=== PATIENT | female | born 1965 | race African-American/Black ===

== ENCOUNTER 2018-06-02 13:25 | Inpatient (IN) | payer OTHER ==
[2018-06-02 14:45] VITALS: BMI 25.9
[2018-06-02] MEDS ORDERED: ALBUTEROL SO4 2.5/IPRATROPIUM 0.5 INH SOL 3 ML VIAL.NEB. NEB PRN (17:38)
--- NOTE | 2018-06-02 17:44 | HP ---
CIWA Score Nausea/Vomitin-No Nausea/No Vomiting Muscle Tremors: 2 Anxiety: 3 Agitation: 3 Paroxysmal Sweats: 3 Orientation: 0-Oriented Tacttile Disturbances: 2-Mild Itch/Numbness/Burn (b/t hands and legs) Auditory Disturbances: 1-Very Mild Visual Disturbances: 1-Very Mild Sensitivity Headache: 2-Mild CIWA-Ar Total Score: 17 - Admission Criteria OASAS Guidelines: Admission for Medically Managed Detox: Requires at least one of the followin. CIWA greater than 12 2. Seizures within the past 24 hours 3. Delirium tremens within the past 24 hours 4. Hallucinations within the past 24 hours 5. Acute intervention needed for co occurring medical disorder 6. Acute intervention needed for co occurring psychiatric disorder 7. Severe withdrawal that cannot be handled at a lower level of care (continued vomiting, continued diarrhea, abnormal vital signs) requiring intravenous medication and/or fluids 8. Patient presents the following: CIWA greater than 12 Admission Criteria Met: Admission criteria met Admission ROS [facility] Chief Complaint: alcohol detox Allergies/Adverse Reactions: Allergies Allergy/AdvReac Type Severity Reaction Status Date / Time No Known Allergies Allergy Verified 06/02/18 17:33 History of Present Illness: 52 yo female with hx of alcohol, nicotine, marijuana and cocaine dependence is here seeking alchol detox, this is her first admission to detox, patient is self referred. Patient is linked to [facility] on methadone 60 mg, last medicated today, dose pending verification. PMHX: COPD Depression. Longest sobriety 11 years (2007 -2016). Denies suicidal ideation or hx of suicide attempt. Denies hx of seizures or blackouts Exam Limitations: No Limitations - Ebola screening Have you traveled outside of the country in the last 21 days: No Have you had contact with anyone from an Ebola affected area: No Have you been sick,other than usual withdrawal symptoms: No Do you have a fever: No - Review of Systems Constitutional: No Symptoms Reported, Chills, Loss of Appetite, Changes in sleep , Unintentional Wgt. Loss EENT: reports: Nose Congestion Respiratory: reports: Wheezing Cardiac: reports: No Symptoms Reported GI: reports: Poor Appetite, Poor Fluid Intake : reports: No Symptoms Reported Musculoskeletal: reports: Back Pain, Joint Pain Integumentary: reports: No Symptoms Reported Neuro: reports: Headache, Numbness Endocrine: reports: Increased Thirst Hematology: reports: No Symptoms Reported Psychiatric: reports: Orientated x3, Anxious Other Systems: Reviewed and Negative Patient History - Patient Medical History Hx Anemia: No Hx Asthma: No Hx Chronic Obstructive Pulmonary Disease (COPD): Yes Hx Cancer: No Hx Cardiac Disorders: No Hx Congestive Heart Failure: No Hx Hypertension: No Hx Hypercholesterolemia: No Hx Pacemaker: No HX Cerebrovascular Accident: No Hx Seizures: No Hx Dementia: No Hx Diabetes: No Hx Gastrointestinal Disorders: No Hx Liver Disease: No Hx Genitourinary Disorders: No Hx Sexually Transmitted Disorders: No Hx Renal Disease (ESRD): No Hx Thyroid Disease: No Hx Human Immunodeficiency Virus (HIV): No Hx Hepatitis C: No Hx Depression: Yes Hx Suicide Attempt: No Hx Bipolar Disorder: No Hx Schizophrenia: No - Patient Surgical History Past Surgical History: Yes Hx Orthopedic Surgery: Yes (right shoulder sx ) - PPD History Previous Implant?: No Documented Results: Negative w/o proof PPD to be Administered?: Yes - Reproductive History Patient is a Female of Child Bearing Age (11 -55 yrs old): Yes (post menopausal ) Patient : No - Smoking Cessation Smoking history: Current some day smoker Have you smoked in the past 12 months: Yes Aproximately how many cigarettes per day: 2 Hx Chewing Tobacco Use: No Initiated information on smoking cessation: Yes 'Breaking Loose' booklet given: 06/02/18 - Substance & Tx. History Hx Alcohol Use: Yes Hx Substance Use: Yes Substance Use Type: Alcohol Hx Substance Use Treatment: No - Substances Abused alcohol Route: Oral Frequency: Daily Amount used: 1 pint liquor Age of first use: 20 Date of Last Use: 06/02/18 cocaine Route: Smoking Frequency: Daily Amount used: $150 Age of first use: 20 Date of Last Use: 06/02/18 Marijuana/Hashish Route: Smoking Frequency: Daily Amount used: $200 week Age of first use: 12 Date of Last Use: 06/02/18 Family Disease History - Family Disease History Family Disease History: CA: Father (), Mother () Admission Physical Exam BHS - Vital Signs Vital Signs: Vital Signs - 24 hr 06/02/18 14:42 Temperature 98.3 F Pulse Rate 64 Respiratory 18 Rate Blood Pressure 131/86 - Physical General Appearance: Yes: Appropriately Dressed, Mild Distress, Thin, Sweating, Anxious HEENTM: Yes: EOMI, Hearing grossly Normal, Normal ENT Inspection, Normocephalic , Normal Voice, CELSA, Pharynx Normal, Tm's normal, Rhinorrhea, Other Respiratory: Yes: Chest Non-Tender, No Respiratory Distress, No Accessory Muscle Use, Wheezing Neck: Yes: No masses,lesions,Nodules Breast: Yes: Breast Exam Deferred Cardiology: Yes: Regular Rhythm Abdominal: Yes: Normal Bowel Sounds, Non Tender, Flat, Soft Genitourinary: Yes: Within Normal Limits Back: Yes: Normal Inspection Musculoskeletal: Yes: full range of Motion, Gait Steady Extremities: Yes: Within Normal Limits Neurological: Yes: flitch hanger II-XII NML intact, Fully Oriented, Alert, Motor Strength 5/5, Depressed Affect Integumentary: Yes: Normal Color, Warm, Diaphoresis Lymphatic: Yes: Within Normal Limits - Diagnostic (1) Alcohol dependence with withdrawal Current Visit: Yes Status: Acute Qualifiers: Complication of substance-induced condition: uncomplicated Qualified Code(s ): F10.230 - Alcohol dependence with withdrawal, uncomplicated (2) Opioid dependence on agonist therapy Current Visit: Yes Status: Acute (3) COPD (chronic obstructive pulmonary disease) Current Visit: Yes Status: Chronic Qualifiers: COPD type: unspecified COPD Qualified Code(s): J44.9 - Chronic obstructive pulmonary disease, unspecified (4) Cannabis dependence Current Visit: Yes Status: Acute (5) Cocaine dependence Current Visit: Yes Status: Acute Qualifiers: Substance use status: uncomplicated Qualified Code(s): F14.20 - Cocaine dependence, uncomplicated Cleared for Admission [facility] - Detox or Rehab [facility] Level of Care: Medically Managed Detox Regimen/Protocol: Librium [facility] Breath Alcohol Content Breath Alcohol Content: 0 Urine Pregancy Test - Result Urine Test Results: Negative- NO Line Present Urine Drug Screen - Results Drug Screen Negative: No Urine Drug Screen Results: THC-Marijuana, DINO-Cocaine, OPI-Opiates, MTD- Methadone, FEN-Fentanyl Inpatient Rehab Admission - Rehab Decision to Admit Inpatient rehab admission?: No
[2018-06-02] MEDS ORDERED: IBUPROFEN 400 MG TABLET (FP) PO PRN (18:10)
[2018-06-02] MEDS ORDERED: MAG HYDROX/AL HYDROX/SIMETH 30 ML UNIT-DOSE CUP PO PRN (18:10)
[2018-06-02] MEDS ORDERED: MENTHOL/PHENOL 1 EACH UD MM PRN (18:10)
[2018-06-02] MEDS ORDERED: P-EPHED 60MG/TRIPROLIDI 2.5MG TABLET PO PRN (18:10)
[2018-06-02] MEDS ORDERED: MAGNESIUM HYDROX 2400MG/30ML ORAL SUSPENSION 30 ML CUP PO PRN (18:10)
[2018-06-02] MEDS ORDERED: guaiFENesin/D-METHORPHAN HB 10 ML UNIT-DOSE CUPS PO PRN (18:10)
[2018-06-02] MEDS ORDERED: ACETAMINOPHEN 325 MG TABLET (FP) PO PRN (18:10)
[2018-06-02] MEDS ORDERED: LOPERAMIDE HCL 2 MG CAPSULE PO PRN (18:10)
[2018-06-02] MEDS ORDERED: chlordiazePOXIDE HCL 25 MG CAPSULE PO PRN (18:10)
[2018-06-02] MEDS ORDERED: MAGNESIUM CITRATE 300 ML BOTTLE PO PRN (18:10)
[2018-06-02] MEDS ORDERED: ALBUTEROL SO4 8 GM HFA INHALER IH PRN (18:15)
[2018-06-02] MEDS: predniSONE 20 MG TABLET (UD) PO SCH (20:47)
[2018-06-02] MEDS: MONTELUKAST NA 10 MG TABLET PO SCH (22:21)
[2018-06-02] MEDS: THIAMINE HCL 100 MG TABLET (FP) PO SCH (22:21)
[2018-06-02] MEDS: MELATONIN 5 MG TABLETS PO PRN (22:21)
[2018-06-02] MEDS: chlordiazePOXIDE HCL 25 MG CAPSULE PO SCH (22:21)
[2018-06-03 01:56] LABS: URINE APPEARANCE CLOUDY; URINE BILIRUBIN NEGATIVE (<2.0 mg/dL); URINE COLOR YELLOW; URINE GLUCOSE (UA) NEGATIVE (NEGATIVE); URINE KETONE NEGATIVE (NEGATIVE); URINE LEUK ESTERASE TRACE (NEGATIVE); URINE NITRITE NEGATIVE (NEGATIVE); URINE PROTEIN NEGATIVE (NEGATIVE); URINE UROBILINOGEN NEGATIVE mg/dL (0.2-1.0)
[2018-06-03 02:13] LABS: EPI CELLS RARE /HPF (FEW); URINE BACTERIA RARE /hpf (NONE SEEN); URINE MUCUS RARE
[2018-06-03] MEDS: chlordiazePOXIDE HCL 25 MG CAPSULE PO SCH ×4 (05:46→22:28)
--- NOTE | 2018-06-03 07:51 | CONSULT ---
[facility] Psychiatric Consult - Data Date of interview: 06/03/18 Admission source: [facility] Identifying data: This is 52 years old female, mpother of one, living with family, unemployed, with ni financial support, with no psychiatric hospitalization history, with a history of alcohol, opioids, nicotine, marijuana and cocaine dependence is here reporting withdfrawal symptoms and seeking alchol detox. This is her first admission to detox, patient is self referred. Currently at [facility] 70mg /day Substance Abuse History: - Smoking Cessation. Smoking history: Current some day smoker. Have you smoked in the past 12 months: Yes. Aproximately how many cigarettes per day: 2. Hx Chewing Tobacco Use: No. Initiated information on smoking cessation: Yes. 'Breaking Loose' booklet given: 06/02/18. - Substance & Tx. History. Hx Alcohol Use: Yes. Hx Substance Use: Yes. Substance Use Type : Alcohol. Hx Substance Use Treatment: No. - Substances Abused. alcohol. Route: Oral. Frequency: Daily. Amount used: 1 pint liquor. Age of first use: 20. Date of Last Use: 06/02/18. cocaine. Route: Smoking. Frequency: Daily. Amount used: $150. Age of first use: 20. Date of Last Use: 06/02/18. Marijuana/Hashish. Route: Smoking. Frequency: Daily. Amount used: $200 week. Age of first use: 12. Date of Last Use: 06/02/18 Medical History: Denies any significant medical issues. MMTP 70mg/day Psychiatric History: Patient reports history of depression a and anxiety, reports no psychiatric hospitalization history, no suicdial, homicidal history, reports insomnia, reports taking prior to admission: Seroquel 100mg po qhs Physical/Sexual Abuse/Trauma History: Denies Additional Comment: Seroquel 100mg po qhs Mental Status Exam - Mental Status Exam Alert and Oriented to: Person Cognitive Function: Fair Patient Appearance: Unkempt Mood: Apprehensive Affect: Mood Congruent Patient Behavior: Cooperative Speech Pattern: Delayed Voice Loudness: Mildly Soft/Quiet Thought Process: Circumstantial, Goal Oriented Thought Disorder: Being Controlled Hallucinations: Denies Suicidal Ideation: Denies Homicidal Ideation: Denies Insight/Judgement: Fair Sleep: Difficulty falling asleep Appetite: Fair Muscle strength/Tone: Mild Hypotonicity Gait/Station: Shuffling Additional Comments: Seroquel 100mg po qhs Psychiatric Findings - Problem List ([place] 1, 2,3) (1) Drug-induced mood disorder Current Visit: Yes Status: Acute (2) Alcohol dependence with withdrawal Current Visit: Yes Status: Acute Qualifiers: Complication of substance-induced condition: uncomplicated Qualified Code(s ): F10.230 - Alcohol dependence with withdrawal, uncomplicated (3) Cannabis dependence Current Visit: Yes Status: Acute (4) Cocaine dependence Current Visit: Yes Status: Acute Qualifiers: Substance use status: uncomplicated Qualified Code(s): F14.20 - Cocaine dependence, uncomplicated (5) Opioid dependence on agonist therapy Current Visit: Yes Status: Acute (6) COPD (chronic obstructive pulmonary disease) Current Visit: Yes Status: Chronic Qualifiers: COPD type: unspecified COPD Qualified Code(s): J44.9 - Chronic obstructive pulmonary disease, unspecified - Initial Treatment Plan Initial Treatment Plan: Seroquel 100mg po qhs
[2018-06-03] MEDS ORDERED: METHADONE HCL 10 MG TABLET PO ONE (08:54)
[2018-06-03] MEDS ORDERED: METHADONE 40 MG, METHADONE 30 MG PO ONE (09:30)
[2018-06-03] MEDS ORDERED: METHADONE HCL 40 MG DISPERSABLE TABLET ONE (09:55)
[2018-06-03] MEDS ORDERED: METHADONE HCL 10 MG TABLET ONE (09:55)
--- NOTE | 2018-06-03 10:00 | EKG ---
Test Reason : Blood Pressure : / mmHG Vent. Rate : 070 BPM Atrial Rate : 070 BPM P-R Int : 206 ms QRS Dur : 082 ms QT Int : 406 ms P-R-T Axes : 069 -54 047 degrees QTc Int : 438 ms NORMAL SINUS RHYTHM LEFT ANTERIOR FASCICULAR BLOCK ABNORMAL ECG NO PREVIOUS ECGS AVAILABLE Confirmed by KATHARINE WONG MD ([id number]) on 06/03/2018 10:00:03 AM Referred By: Confirmed By:KATHARINE WONG MD
[2018-06-03] MEDS: PRENATAL VITAMINS W/ FOLIC ACID TABLET (FP) PO SCH (11:00)
[2018-06-03] MEDS: predniSONE 20 MG TABLET (UD) PO SCH (11:01)
--- NOTE | 2018-06-03 11:35 | PN ---
S CIWA - CIWA Score Nausea/Vomitin-No Nausea/No Vomiting Muscle Tremors: 4-Moderate,w/Arms Extend Anxiety: 3 Agitation: 3 Paroxysmal Sweats: 3 Orientation: 0-Oriented Tacttile Disturbances: 0-None Auditory Disturbances: 0-None Visual Disturbances: 0-None Headache: 0-None Present CIWA-Ar Total Score: 13 S Progress Note (SOAP) Subjective: irritable agitation anxiety sweats body aches interrupted sleep Objective: 06/03/18 11:40 Vital Signs Temperature 98.4 F 06/03/18 09:35 Pulse Rate 76 06/03/18 09:35 Respiratory Rate 18 06/03/18 09:35 Blood Pressure 141/91 06/03/18 09:35 O2 Sat by Pulse Oximetry (%) Laboratory Tests 06/02/18 23:18 Urine Color Yellow Urine Appearance Cloudy Urine pH 7.0 Ur Specific [place] 1.020 Urine Protein Negative Urine Glucose (UA) Negative Urine Ketones Negative Urine Blood Negative Urine Nitrite Negative Urine Bilirubin Negative Urine Urobilinogen Negative Ur Leukocyte Esterase Trace Urine WBC (Auto) 4 Urine RBC (Auto) 5 Ur Epithelial Cells Rare Urine Bacteria Rare Urine Mucus Rare rest of labs pending aaox3 ambulating no acute distress Assessment: 06/03/18 11:40 withdrawal sx Plan: continue detox increase fluids
[2018-06-03 12:46] LABS: HEMATOCRIT 40.4 % (32.4-45.2); HEMOGLOBIN 13.7 GM/dL (10.7-15.3); MCH 30.8 pg (25.7-33.7); MCHC 33.9 g/dl (32.0-36.0); MEAN CELL VOLUME 90.9 fl (80-96); MEAN PLT VOLUME 8.4 fl (7.5-11.1); PLATELET COUNT 229 K/MM3 (134-434); RBC 4.44 M/mm3 (3.60-5.2); RDW 14.2 % (11.6-15.6); WHITE BLOOD COUNT 10.3 K/mm3 (4.0-10.0)
[2018-06-03 12:52] LABS: ALBUMIN 3.6 g/dl (3.4-5.0); ALK PHOS 101 U/L (45-117); ANION GAP 3 MMOL/L (8-16); BILIRUBIN,TOTAL 0.4 mg/dL (0.2-1); BLOOD UREA NITROGEN 11 mg/dL (7-18); CALCIUM 8.5 mg/dL (8.5-10.1); CHLORIDE 108 mmol/L (98-107); CO2 28 mmol/L (21-32); CREATININE 0.8 mg/dL (0.55-1.3); GLUCOSE,RANDOM 90 mg/dL (74-106); POTASSIUM 3.9 mmol/L (3.5-5.1); SGOT/AST 20 U/L (15-37); SGPT/ALT 26 U/L (13-61); SODIUM 139 mmol/L (136-145); TOT PROT 6.4 g/dl (6.4-8.2)
[2018-06-03] MEDS ORDERED: NICOTINE POLACRILEX 2 MG GUM BUC PRN (18:05)
[2018-06-03] MEDS ORDERED: QUEtiapine FUMARATE 100 MG TABLET (FP) PO SCH (22:00)
[2018-06-03] MEDS: THIAMINE HCL 100 MG TABLET (FP) PO SCH (22:28)
[2018-06-03] MEDS: MONTELUKAST NA 10 MG TABLET PO SCH (22:29)
[2018-06-03] MEDS: MELATONIN 5 MG TABLETS PO PRN (22:29)
[2018-06-04] MEDS ORDERED: METHADONE HCL 40 MG DISPERSABLE TABLET ONE (04:32)
[2018-06-04] MEDS ORDERED: METHADONE HCL 10 MG TABLET ONE (04:33)
[2018-06-04] MEDS ORDERED: METHADONE HCL 40 MG DISPERSABLE TABLET PO SCH (06:00)
[2018-06-04] MEDS ORDERED: METHADONE 40 MG, METHADONE 30 MG PO SCH (06:00)
[2018-06-04] MEDS: chlordiazePOXIDE HCL 25 MG CAPSULE PO SCH ×2 (06:35→10:31)
[2018-06-04] MEDS: PRENATAL VITAMINS W/ FOLIC ACID TABLET (FP) PO SCH (10:24)
[2018-06-04] MEDS: predniSONE 20 MG TABLET (UD) PO SCH (10:24)
[2018-06-04] MEDS ORDERED: COLLOIDAL OATMEAL 1 BAR EACH TP PRN (11:41)
--- NOTE | 2018-06-04 11:43 | PN ---
[facility] CIWA - CIWA Score Nausea/Vomitin-No Nausea/No Vomiting Muscle Tremors: 3 Anxiety: 3 Agitation: 3 Paroxysmal Sweats: 2 Orientation: 0-Oriented Tacttile Disturbances: 0-None Auditory Disturbances: 0-None Visual Disturbances: 0-None Headache: 0-None Present CIWA-Ar Total Score: 11 BHS Progress Note (SOAP) Subjective: sweats shakes dry/itchy skin body aches Objective: 06/04/18 11:42 Vital Signs Temperature 98.4 F 06/04/18 09:48 Pulse Rate 69 06/04/18 09:48 Respiratory Rate 18 06/04/18 09:48 Blood Pressure 106/63 06/04/18 09:48 O2 Sat by Pulse Oximetry (%) Laboratory Tests 06/02/18 06/03/18 06/03/18 23:18 07:00 07:00 WBC 10.3 H RBC 4.44 Hgb 13.7 Hct 40.4 MCV 90.9 MCH 30.8 MCHC 33.9 RDW 14.2 Plt Count 229 MPV 8.4 Sodium 139 Potassium 3.9 Chloride 108 H Carbon Dioxide 28 Anion Gap 3 L BUN 11 Creatinine 0.8 Creat Clearance w eGFR > 60 Random Glucose 90 Calcium 8.5 Total Bilirubin 0.4 AST 20 ALT 26 Alkaline Phosphatase 101 Total Protein 6.4 Albumin 3.6 Urine Color Yellow Urine Appearance Cloudy Urine pH 7.0 Ur Specific [place] 1.020 Urine Protein Negative Urine Glucose (UA) Negative Urine Ketones Negative Urine Blood Negative Urine Nitrite Negative Urine Bilirubin Negative Urine Urobilinogen Negative Ur Leukocyte Esterase Trace Urine WBC (Auto) 4 Urine RBC (Auto) 5 Ur Epithelial Cells Rare Urine Bacteria Rare Urine Mucus Rare RPR Titer 06/03/18 07:00 WBC RBC Hgb Hct MCV MCH MCHC RDW Plt Count MPV Sodium Potassium Chloride Carbon Dioxide Anion Gap BUN Creatinine Creat Clearance w eGFR Random Glucose Calcium Total Bilirubin AST ALT Alkaline Phosphatase Total Protein Albumin Urine Color Urine Appearance Urine pH Ur Specific [place] Urine Protein Urine Glucose (UA) Urine Ketones Urine Blood Urine Nitrite Urine Bilirubin Urine Urobilinogen Ur Leukocyte Esterase Urine WBC (Auto) Urine RBC (Auto) Ur Epithelial Cells Urine Bacteria Urine Mucus RPR Titer Nonreactive aaox3 ambulating no acute distress Assessment: 06/04/18 11:43 mild withdrawal sx Plan: continue detox increase fluids aveeno soap lac-hydrin
[2018-06-04] MEDS ORDERED: AMMONIUM LACTATE 12% LOTION 225 GM BOTTLE TP SCH (11:45)
[2018-06-04 14:35] VITALS: BP 136/76; PULSE 73; TEMP 96.8
--- NOTE | 2018-06-04 16:58 | PN ---
S Progress Note Note: Vital Signs Temperature 96.8 F L 06/04/18 14:34 Pulse Rate 73 06/04/18 14:34 Respiratory Rate 18 06/04/18 14:34 Blood Pressure 136/76 06/04/18 14:34 O2 Sat by Pulse Oximetry (%) Patient left AMA. Patient Aox3, no acute distress, no suicidal / homicidal ideation, ambulatory. Patient reports she needs to pay her rent and can not wait. Patient advised on the risk involved interrupting treatment which include relapse and even . If worsening symptoms are present patient to follow up with local ED. Patient to follow up her primary care provider in week and follow up with account analyst referrals. Patient verbalizes understanding.
--- NOTE | 2018-06-04 17:00 | DS ---
[facility] Detox Discharge Summary Admission Date: 06/02/18 Discharge Date: 06/04/18 - History Present History: Alcohol Dependence, Cannabis Dependence, Cocaine Dependence Additional Comments: Patient left AMA. P Patient advised on the risk involved interrupting treatment which include relapse and even . If worsening symptoms are present patient to follow up with local ED. Patient to follow up her primary care provider in week and follow up with securities counselor referrals. Follow up with MMTP. Patient verbalizes understanding. - Physical Exam Results Vital Signs: Vital Signs Temperature 96.8 F L 06/04/18 14:34 Pulse Rate 73 06/04/18 14:34 Respiratory Rate 18 06/04/18 14:34 Blood Pressure 136/76 06/04/18 14:34 O2 Sat by Pulse Oximetry (%) Pertinent Admission Physical Exam Findings: Laboratory Last Values WBC 10.3 K/mm3 (4.0-10.0) H 06/03/18 07:00 RBC 4.44 M/mm3 (3.60-5.2) 06/03/18 07:00 Hgb 13.7 GM/dL (10.7-15.3) 06/03/18 07:00 Hct 40.4 % (32.4-45.2) 06/03/18 07:00 MCV 90.9 fl (80-96) 06/03/18 07:00 MCH 30.8 pg (25.7-33.7) 06/03/18 07:00 MCHC 33.9 g/dl (32.0-36.0) 06/03/18 07:00 RDW 14.2 % (11.6-15.6) 06/03/18 07:00 Plt Count 229 K/MM3 (134-434) 06/03/18 07:00 MPV 8.4 fl (7.5-11.1) 06/03/18 07:00 Sodium 139 mmol/L (136-145) 06/03/18 07:00 Potassium 3.9 mmol/L (3.5-5.1) 06/03/18 07:00 Chloride 108 mmol/L (98-107) H 06/03/18 07:00 Carbon Dioxide 28 mmol/L (21-32) 06/03/18 07:00 Anion Gap 3 MMOL/L (8-16) L 06/03/18 07:00 BUN 11 mg/dL (7-18) 06/03/18 07:00 Creatinine 0.8 mg/dL (0.55-1.3) 06/03/18 07:00 Creat Clearance w eGFR > 60 (>60) 06/03/18 07:00 Random Glucose 90 mg/dL (74-106) 06/03/18 07:00 Calcium 8.5 mg/dL (8.5-10.1) 06/03/18 07:00 Total Bilirubin 0.4 mg/dL (0.2-1) 06/03/18 07:00 AST 20 U/L (15-37) 06/03/18 07:00 ALT 26 U/L (13-61) 06/03/18 07:00 Alkaline Phosphatase 101 U/L (45-117) 06/03/18 07:00 Total Protein 6.4 g/dl (6.4-8.2) 06/03/18 07:00 Albumin 3.6 g/dl (3.4-5.0) 06/03/18 07:00 Urine Color Yellow 06/02/18 23:18 Urine Appearance Cloudy 06/02/18 23:18 Urine pH 7.0 (5.0-8.0) 06/02/18 23:18 Ur Specific [place] 1.020 (1.010-1.035) 06/02/18 23:18 Urine Protein Negative (NEGATIVE) 06/02/18 23:18 Urine Glucose (UA) Negative (NEGATIVE) 06/02/18 23:18 Urine Ketones Negative (NEGATIVE) 06/02/18 23:18 Urine Blood Negative (NEGATIVE) 06/02/18 23:18 Urine Nitrite Negative (NEGATIVE) 06/02/18 23:18 Urine Bilirubin Negative (<2.0 mg/dL) 06/02/18 23:18 Urine Urobilinogen Negative mg/dL (0.2-1.0) 06/02/18 23:18 Ur Leukocyte Esterase Trace (NEGATIVE) 06/02/18 23:18 Urine WBC (Auto) 4 /hpf (3-5) 06/02/18 23:18 Urine RBC (Auto) 5 /hpf (0-3) 06/02/18 23:18 Ur Epithelial Cells Rare /HPF (FEW) 06/02/18 23:18 Urine Bacteria Rare /hpf (NONE SEEN) 06/02/18 23:18 Urine Mucus Rare 06/02/18 23:18 RPR Titer Nonreactive (NONREACTIVE) 06/03/18 07:00 - Medication Discharge Medications: Ambulatory Orders Albuterol Sulfate Inhaler - [Ventolin HFA Inhaler -] 2 puff IH Q4H 06/02/18 Quetiapine Fumarate [Seroquel] 100 mg PO HS #30 tablet 06/03/18 - Diagnosis (1) Alcohol dependence with withdrawal Current Visit: Yes Status: Acute Qualifiers: Complication of substance-induced condition: uncomplicated Qualified Code(s ): F10.230 - Alcohol dependence with withdrawal, uncomplicated (2) Opioid dependence on agonist therapy Current Visit: Yes Status: Acute (3) COPD (chronic obstructive pulmonary disease) Current Visit: Yes Status: Chronic Qualifiers: COPD type: unspecified COPD Qualified Code(s): J44.9 - Chronic obstructive pulmonary disease, unspecified (4) Cannabis dependence Current Visit: Yes Status: Acute (5) Cocaine dependence Current Visit: Yes Status: Acute Qualifiers: Substance use status: uncomplicated Qualified Code(s): F14.20 - Cocaine dependence, uncomplicated - AMA Did Patient Leave Against Medical Advice: Yes
[2018-06-04] MEDS ORDERED: chlordiazePOXIDE 5 MG CAPSULE PO SCH (23:00)
[2018-06-05] MEDS ORDERED: chlordiazePOXIDE HCL 10 MG CAPSULE PO SCH (23:00)
== END 2018-06-04 17:10 | disposition left against medical advice (07) | DRG 770 ==
LOC: YASAS 13:25 → Y6N 18:36
PROVIDERS: ADMIT Surgery; ATTEND Surgery
PROC: HZ2ZZZZ Detoxification Services for Substance Abuse Treatment (ICD-10-PCS; principal; 2018-06-02)
DX: F10.230 Alcohol dependence with withdrawal, uncomplicated (principal); F14.20 Cocaine dependence, uncomplicated; F12.20 Cannabis dependence, uncomplicated; F11.20 Opioid dependence, uncomplicated; F19.24 Other psychoactive substance dependence with psychoactive substance-induced mood disorder; J44.9 Chronic obstructive pulmonary disease, unspecified
CPT/HCPCS: 36415; 80053; 81003; 81015; 85027; 86593; 93005; 93010

== ENCOUNTER 2018-06-05 14:44 | Inpatient (IN) | payer OTHER ==
[2018-06-05 17:51] VITALS: BMI 26.8
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
[2018-06-05] MEDS ORDERED: guaiFENesin/D-METHORPHAN HB 10 ML UNIT-DOSE CUPS PO PRN (19:46)
[2018-06-05] MEDS ORDERED: MAG HYDROX/AL HYDROX/SIMETH 30 ML UNIT-DOSE CUP PO PRN (19:46)
[2018-06-05] MEDS ORDERED: MAGNESIUM HYDROX 2400MG/30ML ORAL SUSPENSION 30 ML CUP PO PRN (19:46)
[2018-06-05] MEDS ORDERED: P-EPHED 60MG/TRIPROLIDI 2.5MG TABLET PO PRN (19:46)
[2018-06-05] MEDS ORDERED: NICOTINE POLACRILEX 2 MG GUM BC PRN (19:46)
[2018-06-05] MEDS ORDERED: MAGNESIUM CITRATE 300 ML BOTTLE PO PRN (19:46)
[2018-06-05] MEDS ORDERED: MENTHOL/PHENOL 1 EACH UD MM PRN (19:46)
[2018-06-05] MEDS ORDERED: ALBUTEROL SO4 0.083% IH SOL 2.5 MG/3 ML VIAL.NEB. NEB PRN (19:48)
--- NOTE | 2018-06-05 22:58 | PN ---
[facility] Progress Note Note: Patient was discharged from detox @ [facility], yesterday, 06/04/17. Patient received Methadone 70 mg PO daily during course of detox stay. Patient states did not receive her methadone from her program today. Will order Methadone 25 mg Once now and restart maintenance dose in the morning.
[2018-06-05] MEDS ORDERED: METHADONE HCL 10 MG TABLET PO ONE (22:59)
[2018-06-05] MEDS ORDERED: METHADONE HCL 10 MG TABLET ONE (23:11)
[2018-06-05] MEDS ORDERED: METHADONE HCL 5 MG TABLET ONE (23:11)
[2018-06-05] MEDS: QUEtiapine FUMARATE 100 MG TABLET (FP) PO SCH (23:13)
[2018-06-05] MEDS: MONTELUKAST NA 10 MG TABLET PO SCH (23:13)
[2018-06-05] MEDS: THIAMINE HCL 100 MG TABLET (FP) PO SCH (23:14)
[2018-06-05] MEDS ORDERED: METHADONE 20 MG, METHADONE 5 MG PO ONE (23:15)
[2018-06-06] MEDS ORDERED: METHADONE HCL 10 MG TABLET ONE (08:58)
[2018-06-06] MEDS ORDERED: METHADONE HCL 40 MG DISPERSABLE TABLET ONE (08:58)
[2018-06-06] MEDS: METHADONE 40 MG, METHADONE 30 MG PO SCH (09:03)
[2018-06-06] MEDS: PRENATAL VITAMINS W/ FOLIC ACID TABLET (FP) PO SCH (09:05)
[2018-06-06] MEDS ORDERED: METHADONE HCL 10 MG TABLET PO SCH (10:00)
[2018-06-06 10:24] LABS: ALBUMIN 3.5 g/dl (3.4-5.0); ALK PHOS 95 U/L (45-117); ANION GAP 6 MMOL/L (8-16); BILIRUBIN,TOTAL 0.2 mg/dL (0.2-1); BLOOD UREA NITROGEN 14 mg/dL (7-18); CALCIUM 8.7 mg/dL (8.5-10.1); CHLORIDE 110 mmol/L (98-107); CO2 28 mmol/L (21-32); CREATININE 0.9 mg/dL (0.55-1.3); GLUCOSE,RANDOM 73 mg/dL (74-106); POTASSIUM 4.2 mmol/L (3.5-5.1); SGOT/AST 16 U/L (15-37); SGPT/ALT 24 U/L (13-61); SODIUM 144 mmol/L (136-145); TOT PROT 6.4 g/dl (6.4-8.2)
[2018-06-06 10:27] LABS: HEMATOCRIT 40.3 % (32.4-45.2); HEMOGLOBIN 13.7 GM/dL (10.7-15.3); MCH 31.1 pg (25.7-33.7); MCHC 34.2 g/dl (32.0-36.0); MEAN CELL VOLUME 91.1 fl (80-96); MEAN PLT VOLUME 8.4 fl (7.5-11.1); PLATELET COUNT 236 K/MM3 (134-434); RBC 4.42 M/mm3 (3.60-5.2); RDW 14.7 % (11.6-15.6); WHITE BLOOD COUNT 10.4 K/mm3 (4.0-10.0)
[2018-06-06 13:33] LABS: URINE APPEARANCE CLOUDY; URINE BILIRUBIN NEGATIVE (<2.0 mg/dL); URINE COLOR YELLOW; URINE GLUCOSE (UA) NEGATIVE (NEGATIVE); URINE KETONE NEGATIVE (NEGATIVE); URINE LEUK ESTERASE 3+ (NEGATIVE); URINE NITRITE NEGATIVE (NEGATIVE); URINE PROTEIN NEGATIVE (NEGATIVE); URINE UROBILINOGEN NEGATIVE mg/dL (0.2-1.0)
[2018-06-06 14:35] LABS: EPI CELLS MODERATE /HPF (FEW); URINE MUCUS RARE
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
[2018-06-06] MEDS: THIAMINE HCL 100 MG TABLET (FP) PO SCH (21:34)
[2018-06-06] MEDS: QUEtiapine FUMARATE 100 MG TABLET (FP) PO SCH (21:34)
[2018-06-06] MEDS: MONTELUKAST NA 10 MG TABLET PO SCH (21:35)
[2018-06-06] MEDS: MELATONIN 5 MG TABLETS PO PRN (21:39)
[2018-06-06] MEDS: ALBUTEROL SO4 8 GM HFA INHALER IH PRN (21:52)
[2018-06-07] MEDS ORDERED: METHADONE HCL 10 MG TABLET ONE (06:09)
[2018-06-07] MEDS ORDERED: METHADONE HCL 40 MG DISPERSABLE TABLET ONE (06:09)
[2018-06-07] MEDS: METHADONE 40 MG, METHADONE 30 MG PO SCH (07:05)
[2018-06-07] MEDS: PRENATAL VITAMINS W/ FOLIC ACID TABLET (FP) PO SCH (10:31)
[2018-06-07] MEDS: IBUPROFEN 400 MG TABLET (FP) PO PRN (12:48)
[2018-06-07] MEDS: MONTELUKAST NA 10 MG TABLET PO SCH (21:40)
[2018-06-07] MEDS: THIAMINE HCL 100 MG TABLET (FP) PO SCH (21:40)
[2018-06-07] MEDS: ACETAMINOPHEN 325 MG TABLET (FP) PO PRN (21:42)
[2018-06-07] MEDS: hydrOXYzine PAMOATE 25 MG CAPSULE (FP) PO PRN (21:42)
[2018-06-07] MEDS: MELATONIN 5 MG TABLETS PO PRN (21:42)
[2018-06-08] MEDS ORDERED: METHADONE HCL 10 MG TABLET ONE (05:56)
[2018-06-08] MEDS ORDERED: METHADONE HCL 40 MG DISPERSABLE TABLET ONE (05:57)
[2018-06-08] MEDS: METHADONE 40 MG, METHADONE 30 MG PO SCH (06:49)
[2018-06-08] MEDS: PRENATAL VITAMINS W/ FOLIC ACID TABLET (FP) PO SCH (09:44)
--- NOTE | 2018-06-08 11:38 | PN ---
[facility] Progress Note Note: Labs reviewed. UA shows + blood, 3+ leukocytes. Will repeat UA and follow up results when available. Laboratory Tests 06/06/18 06/06/18 06/06/18 07:50 07:50 07:50 WBC 10.4 H RBC 4.42 Hgb 13.7 Hct 40.3 MCV 91.1 MCH 31.1 MCHC 34.2 RDW 14.7 Plt Count 236 MPV 8.4 Sodium 144 Potassium 4.2 Chloride 110 H Carbon Dioxide 28 Anion Gap 6 L BUN 14 Creatinine 0.9 Creat Clearance w eGFR > 60 Random Glucose 73 L Calcium 8.7 Total Bilirubin 0.2 AST 16 ALT 24 Alkaline Phosphatase 95 Total Protein 6.4 Albumin 3.5 Urine Color Urine Appearance Urine pH Ur Specific [place] Urine Protein Urine Glucose (UA) Urine Ketones Urine Blood Urine Nitrite Urine Bilirubin Urine Urobilinogen Ur Leukocyte Esterase Urine WBC (Auto) Urine RBC (Auto) Ur Epithelial Cells Urine Mucus RPR Titer Nonreactive 06/06/18 09:00 WBC RBC Hgb Hct MCV MCH MCHC RDW Plt Count MPV Sodium Potassium Chloride Carbon Dioxide Anion Gap BUN Creatinine Creat Clearance w eGFR Random Glucose Calcium Total Bilirubin AST ALT Alkaline Phosphatase Total Protein Albumin Urine Color Yellow Urine Appearance Cloudy Urine pH 5.0 D Ur Specific [place] 1.017 Urine Protein Negative Urine Glucose (UA) Negative Urine Ketones Negative Urine Blood 2+ H Urine Nitrite Negative Urine Bilirubin Negative Urine Urobilinogen Negative Ur Leukocyte Esterase 3+ H Urine WBC (Auto) 6 Urine RBC (Auto) 20 Ur Epithelial Cells Moderate Urine Mucus Rare RPR Titer
[2018-06-08] MEDS: ACETAMINOPHEN 325 MG TABLET (FP) PO PRN (14:09)
[2018-06-08 16:50] LABS: URINE APPEARANCE SLCLOUDY; URINE BILIRUBIN NEGATIVE (<2.0 mg/dL); URINE COLOR YELLOW; URINE GLUCOSE (UA) NEGATIVE (NEGATIVE); URINE KETONE NEGATIVE (NEGATIVE); URINE LEUK ESTERASE 3+ (NEGATIVE); URINE NITRITE NEGATIVE (NEGATIVE); URINE PROTEIN NEGATIVE (NEGATIVE); URINE UROBILINOGEN NEGATIVE mg/dL (0.2-1.0)
[2018-06-08 16:54] LABS: EPI CELLS MODERATE /HPF (FEW); URINE BACTERIA RARE /hpf (NONE SEEN); URINE MUCUS RARE
[2018-06-08] MEDS: hydrOXYzine PAMOATE 25 MG CAPSULE (FP) PO PRN (21:42)
[2018-06-08] MEDS: MONTELUKAST NA 10 MG TABLET PO SCH (21:42)
[2018-06-08] MEDS: THIAMINE HCL 100 MG TABLET (FP) PO SCH (21:42)
[2018-06-09] MEDS ORDERED: METHADONE HCL 10 MG TABLET ONE (02:58)
[2018-06-09] MEDS ORDERED: METHADONE HCL 40 MG DISPERSABLE TABLET ONE (02:58)
[2018-06-09] MEDS: METHADONE 40 MG, METHADONE 30 MG PO SCH (06:31)
[2018-06-09] MEDS: NICOTINE 14 MG/24 HOURS TOPICAL PATCH TD SCH (10:41)
[2018-06-09] MEDS: PRENATAL VITAMINS W/ FOLIC ACID TABLET (FP) PO SCH (10:41)
[2018-06-09] MEDS: IBUPROFEN 400 MG TABLET (FP) PO PRN (14:28)
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
[2018-06-09] MEDS: MONTELUKAST NA 10 MG TABLET PO SCH (21:13)
[2018-06-09] MEDS: QUEtiapine FUMARATE 100 MG TABLET (FP) PO SCH (21:13)
[2018-06-09] MEDS: THIAMINE HCL 100 MG TABLET (FP) PO SCH (21:13)
[2018-06-09] MEDS: hydrOXYzine PAMOATE 25 MG CAPSULE (FP) PO PRN (21:14)
[2018-06-10] MEDS ORDERED: METHADONE HCL 10 MG TABLET ONE (05:37)
[2018-06-10] MEDS ORDERED: METHADONE HCL 40 MG DISPERSABLE TABLET ONE (05:38)
[2018-06-10] MEDS: METHADONE 40 MG, METHADONE 30 MG PO SCH (07:20)
[2018-06-10] MEDS: PRENATAL VITAMINS W/ FOLIC ACID TABLET (FP) PO SCH (10:24)
[2018-06-10] MEDS: NICOTINE 14 MG/24 HOURS TOPICAL PATCH TD SCH (10:24)
--- NOTE | 2018-06-10 16:00 | PN ---
[facility] Progress Note Note: Psychiatric nurse practitioner note: Patient is prescribed seroquel 200mg from outpatient psychiatrist. Patient able to tolerate seroquel 100mg last night. No complaints of oversedation or dizziness this morning. Will order seroquel 150mg qhs. Verbal consent given
[2018-06-10] MEDS ORDERED: PT OWN MED DRAWER 7, Y5N ONE (21:08)
[2018-06-10] MEDS: MONTELUKAST NA 10 MG TABLET PO SCH (21:24)
[2018-06-10] MEDS: QUEtiapine FUMARATE 100 MG TABLET (FP) PO SCH (21:24)
[2018-06-10] MEDS: THIAMINE HCL 100 MG TABLET (FP) PO SCH (21:24)
[2018-06-11] MEDS ORDERED: METHADONE HCL 10 MG TABLET ONE (02:31)
[2018-06-11] MEDS ORDERED: METHADONE HCL 40 MG DISPERSABLE TABLET ONE (02:32)
[2018-06-11] MEDS: METHADONE 40 MG, METHADONE 30 MG PO SCH (06:30)
--- NOTE | 2018-06-11 07:14 | PN ---
[facility] Progress Note Note: Patient complained of bilateral hand pain. She reports that she has been having the bilaterl hand pain for more than a week. She denies radiation, chest pain, palpitation or any other symptom. She is able to move both hands above her head. Vital Signs 06/11/18 06/11/18 06/11/18 00:30 06:52 07:08 Temperature 97.9 F 97.9 F Pulse Rate 71 85 Respiratory 18 18 18 Rate Blood Pressure 106/71 138/84 Action: Ibuprofen 600mg tablet 1 tablet oral ordered Patient encouraged to exercise both upper extremities as needed
[2018-06-11] MEDS ORDERED: IBUPROFEN 600 MG TABLET (FP) PO ONE (07:15)
[2018-06-11] MEDS: hydrOXYzine PAMOATE 25 MG CAPSULE (FP) PO PRN ×2 (09:59→21:35)
[2018-06-11] MEDS: PRENATAL VITAMINS W/ FOLIC ACID TABLET (FP) PO SCH (09:59)
[2018-06-11] MEDS: IBUPROFEN 400 MG TABLET (FP) PO PRN (10:00)
[2018-06-11] MEDS: NICOTINE 14 MG/24 HOURS TOPICAL PATCH TD SCH (10:00)
--- NOTE | 2018-06-11 10:10 | PN ---
[facility] Progress Note (SOAP) Subjective: Client with complaints of pain in bilateral arms radiating from elbows to fingertips. Was treated last night with Motrin 600mg and states it was relieved. Denies pain radiating up the neck or chest, or back. PMHx: states she has had this complaint for 1 week, however, there is no indication of this c/o in prior notes or in the medical chart. Objective: Client with full ROM bilateral arms, able to tolerate the BP cuff inflating. Color of extremities equal bilaterally, positive pulses bilaterally wrist and antecubital. Brisk capillary refill. Temperature equal bilaterally, warm to touch. Heart: s1, s2 -regular, lungs clear, 06/11/18 10:27 06/11/18 10:28 06/11/18 10:30 Vital Signs Period Temp Pulse Resp BP Sys/Head Pulse Ox Last 24 Hr 97.9 F-97.9 F 71-85 18-18 106-138/71-84 06/11/18 10:30 Assessment: 06/11/18 10:29 arm pain Plan: Given Motrin prn and resting.
[2018-06-11] MEDS: QUEtiapine FUMARATE 100 MG TABLET (FP) PO SCH (21:35)
[2018-06-11] MEDS: THIAMINE HCL 100 MG TABLET (FP) PO SCH (21:35)
[2018-06-11] MEDS: MELATONIN 5 MG TABLETS PO PRN (21:35)
[2018-06-11] MEDS: MONTELUKAST NA 10 MG TABLET PO SCH (21:35)
[2018-06-12] MEDS ORDERED: METHADONE HCL 10 MG TABLET ONE (05:43)
[2018-06-12] MEDS ORDERED: METHADONE HCL 40 MG DISPERSABLE TABLET ONE (05:44)
[2018-06-12] MEDS: METHADONE 40 MG, METHADONE 30 MG PO SCH (06:24)
[2018-06-12] MEDS: NICOTINE 14 MG/24 HOURS TOPICAL PATCH TD SCH (09:40)
[2018-06-12] MEDS: PRENATAL VITAMINS W/ FOLIC ACID TABLET (FP) PO SCH (09:40)
[2018-06-12] MEDS: MONTELUKAST NA 10 MG TABLET PO SCH (22:00)
[2018-06-12] MEDS: THIAMINE HCL 100 MG TABLET (FP) PO SCH (22:00)
[2018-06-12] MEDS: QUEtiapine FUMARATE 100 MG TABLET (FP) PO SCH (22:00)
[2018-06-13] MEDS ORDERED: METHADONE HCL 10 MG TABLET ONE (04:52)
[2018-06-13] MEDS ORDERED: METHADONE HCL 40 MG DISPERSABLE TABLET ONE (04:52)
[2018-06-13] MEDS: METHADONE 40 MG, METHADONE 30 MG PO SCH (06:17)
[2018-06-13] MEDS: PRENATAL VITAMINS W/ FOLIC ACID TABLET (FP) PO SCH (10:27)
[2018-06-13] MEDS: ACETAMINOPHEN 325 MG TABLET (FP) PO PRN (10:27)
[2018-06-13] MEDS: NICOTINE 14 MG/24 HOURS TOPICAL PATCH TD SCH (10:27)
[2018-06-13] MEDS: QUEtiapine FUMARATE 100 MG TABLET (FP) PO SCH (21:16)
[2018-06-13] MEDS: THIAMINE HCL 100 MG TABLET (FP) PO SCH (21:17)
[2018-06-13] MEDS: MONTELUKAST NA 10 MG TABLET PO SCH (21:17)
[2018-06-13] MEDS: hydrOXYzine PAMOATE 25 MG CAPSULE (FP) PO PRN (21:17)
[2018-06-13] MEDS ORDERED: PT OWN MED DRAWER 7, Y5N ONE (22:39)
[2018-06-14] MEDS ORDERED: METHADONE HCL 10 MG TABLET ONE (03:05)
[2018-06-14] MEDS ORDERED: METHADONE HCL 40 MG DISPERSABLE TABLET ONE (03:06)
[2018-06-14] MEDS: METHADONE 40 MG, METHADONE 30 MG PO SCH (06:41)
[2018-06-14] MEDS: PRENATAL VITAMINS W/ FOLIC ACID TABLET (FP) PO SCH (09:56)
[2018-06-14] MEDS: NICOTINE 14 MG/24 HOURS TOPICAL PATCH TD SCH (09:56)
[2018-06-14] MEDS: MONTELUKAST NA 10 MG TABLET PO SCH (21:28)
[2018-06-14] MEDS: QUEtiapine FUMARATE 100 MG TABLET (FP) PO SCH (21:28)
[2018-06-14] MEDS: THIAMINE HCL 100 MG TABLET (FP) PO SCH (21:28)
[2018-06-14] MEDS: MELATONIN 5 MG TABLETS PO PRN (21:29)
[2018-06-14] MEDS ORDERED: PT OWN MED DRAWER 7, Y5N ONE (21:44)
[2018-06-15] MEDS ORDERED: METHADONE HCL 40 MG DISPERSABLE TABLET ONE (03:19)
[2018-06-15] MEDS ORDERED: METHADONE HCL 10 MG TABLET ONE (03:19)
[2018-06-15] MEDS: METHADONE 40 MG, METHADONE 30 MG PO SCH (06:11)
[2018-06-15] MEDS: ALBUTEROL SO4 8 GM HFA INHALER IH PRN (10:03)
[2018-06-15] MEDS: NICOTINE 14 MG/24 HOURS TOPICAL PATCH TD SCH (10:03)
[2018-06-15] MEDS: PRENATAL VITAMINS W/ FOLIC ACID TABLET (FP) PO SCH (10:03)
[2018-06-15] MEDS: THIAMINE HCL 100 MG TABLET (FP) PO SCH (21:14)
[2018-06-15] MEDS: QUEtiapine FUMARATE 100 MG TABLET (FP) PO SCH (21:14)
[2018-06-15] MEDS: MONTELUKAST NA 10 MG TABLET PO SCH (21:14)
[2018-06-15] MEDS: ACETAMINOPHEN 325 MG TABLET (FP) PO PRN (21:15)
[2018-06-15] MEDS: hydrOXYzine PAMOATE 25 MG CAPSULE (FP) PO PRN (21:16)
[2018-06-16] MEDS ORDERED: METHADONE HCL 40 MG DISPERSABLE TABLET ONE (05:43)
[2018-06-16] MEDS ORDERED: METHADONE HCL 10 MG TABLET ONE (05:43)
[2018-06-16] MEDS: METHADONE 40 MG, METHADONE 30 MG PO SCH (06:38)
[2018-06-16] MEDS ORDERED: PT OWN MED DRAWER 7, Y5N ONE (08:57)
[2018-06-16] MEDS: PRENATAL VITAMINS W/ FOLIC ACID TABLET (FP) PO SCH (09:53)
[2018-06-16] MEDS: NICOTINE 14 MG/24 HOURS TOPICAL PATCH TD SCH (09:53)
--- NOTE | 2018-06-16 14:50 | PN ---
[facility] Progress Note Note: Patient will be discharged tomorrow. Script for 30 days supply of Seroquel 150 mg po HS will be electronically transmitted to [address] [place] [address], [facility] at [address] [place] [address] [place] [id number]
[2018-06-16] MEDS: THIAMINE HCL 100 MG TABLET (FP) PO SCH (21:13)
[2018-06-16] MEDS: MONTELUKAST NA 10 MG TABLET PO SCH (21:13)
[2018-06-16] MEDS ORDERED: QUEtiapine FUMARATE 100 MG TABLET (FP) PO SCH (22:00)
[2018-06-17] MEDS ORDERED: METHADONE HCL 10 MG TABLET ONE (03:15)
[2018-06-17] MEDS ORDERED: METHADONE HCL 40 MG DISPERSABLE TABLET ONE (03:16)
[2018-06-17] MEDS: METHADONE 40 MG, METHADONE 30 MG PO SCH (06:46)
[2018-06-17 06:58] VITALS: BP 95/59; PULSE 65; TEMP 97.8
--- NOTE | 2018-06-17 08:15 | PN ---
[facility] Progress Note Note: PT COMPLETED REHAB AND DISCHARGING TODAY. PT HAS BEEN REFERRED TO [facility] ON [address] [place] [address] FOR CD AFTERCARE. PT REPORTS PRIMARY CARE AT [place], [place] FOR MEDICAL MANAGEMENT. PT REPORTS SHE HAS NARCAN AT HOME. ALERT O X 3. DENIES S/H/I. Home Medications Medication Instructions Recorded Albuterol Sulfate Inhaler - 2 puff IH Q4H 06/02/18 [Ventolin HFA Inhaler -] Quetiapine Fumarate [Seroquel] 100 mg PO HS #30 tablet 06/03/18 Quetiapine Fumarate [Seroquel -] 150 mg PO HS #90 tablet 06/16/18 Montelukast Na [Singulair -] 10 mg PO HS #30 tablet 06/17/18 Vital Signs - 24 hr 06/16/18 06/17/18 06/17/18 12:55 00:30 03:30 Temperature 97.6 F Pulse Rate 69 Respiratory 18 18 18 Rate Blood Pressure 116/75 06/17/18 06:57 Temperature 97.8 F Pulse Rate 65 Respiratory 18 Rate Blood Pressure 95/59 L Laboratory Tests 06/06/18 06/06/18 06/06/18 07:50 07:50 07:50 WBC 10.4 H RBC 4.42 Hgb 13.7 Hct 40.3 MCV 91.1 MCH 31.1 MCHC 34.2 RDW 14.7 Plt Count 236 MPV 8.4 Sodium 144 Potassium 4.2 Chloride 110 H Carbon Dioxide 28 Anion Gap 6 L BUN 14 Creatinine 0.9 Creat Clearance w eGFR > 60 Random Glucose 73 L Calcium 8.7 Total Bilirubin 0.2 AST 16 ALT 24 Alkaline Phosphatase 95 Total Protein 6.4 Albumin 3.5 Urine Color Urine Appearance Urine pH Ur Specific [place] Urine Protein Urine Glucose (UA) Urine Ketones Urine Blood Urine Nitrite Urine Bilirubin Urine Urobilinogen Ur Leukocyte Esterase Urine WBC (Auto) Urine RBC (Auto) Ur Epithelial Cells Urine Bacteria Urine Mucus RPR Titer Nonreactive 06/06/18 06/08/18 09:00 16:40 WBC RBC Hgb Hct MCV MCH MCHC RDW Plt Count MPV Sodium Potassium Chloride Carbon Dioxide Anion Gap BUN Creatinine Creat Clearance w eGFR Random Glucose Calcium Total Bilirubin AST ALT Alkaline Phosphatase Total Protein Albumin Urine Color Yellow Yellow Urine Appearance Cloudy Slcloudy Urine pH 5.0 D 6.0 Ur Specific [place] 1.017 1.018 Urine Protein Negative Negative Urine Glucose (UA) Negative Negative Urine Ketones Negative Negative Urine Blood 2+ H Negative Urine Nitrite Negative Negative Urine Bilirubin Negative Negative Urine Urobilinogen Negative Negative Ur Leukocyte Esterase 3+ H 3+ H Urine WBC (Auto) 6 14 Urine RBC (Auto) 20 7 Ur Epithelial Cells Moderate Moderate Urine Bacteria Rare Urine Mucus Rare Rare RPR Titer NAD MEDICALLY STABLE. PLAN:FOLLOW UP WITH CD AFTERCARE ABOVE ON AT 11:00 A.M. FOLLOW UP WITH MEDICAL MANAGEMENT AT [facility] WITH COPY OF YOUR LABS GIVEN TO YOU WITHIN 1-2 WEEKS AFTER DISCHARGE. INCREASE PO FLUIDS.
[2018-06-17] MEDS ORDERED: ALBUTEROL SO4 2.5/IPRATROPIUM 0.5 INH SOL 3 ML VIAL.NEB. NEB PRN (08:56)
[2018-06-17] MEDS: NICOTINE 14 MG/24 HOURS TOPICAL PATCH TD SCH (09:14)
[2018-06-17] MEDS: PRENATAL VITAMINS W/ FOLIC ACID TABLET (FP) PO SCH (09:14)
[2018-06-17] MEDS ORDERED: BUDESONIDE/FORMETEROL FUMARATE 80/4.5 mcg INHALER IH SCH (10:00)
[2018-06-17] MEDS ORDERED: ALBUTEROL SO4 2.5/IPRATROPIUM 0.5 INH SOL 3 ML VIAL.NEB. NEB SCH (12:00)
== END 2018-06-17 09:22 | disposition home or self-care (01) | DRG 772 ==
LOC: YASAS 14:44 → Y3E 19:58
PROVIDERS: ADMIT Neuromusculoskeletal Medicine & OMM; ATTEND Neuromusculoskeletal Medicine & OMM
PROC: HZ42ZZZ Group Counseling for Substance Abuse Treatment, Cognitive-Behavioral (ICD-10-PCS; principal; 2018-06-05)
DX: F10.20 Alcohol dependence, uncomplicated (principal); F11.20 Opioid dependence, uncomplicated; F14.20 Cocaine dependence, uncomplicated; F12.20 Cannabis dependence, uncomplicated; F19.24 Other psychoactive substance dependence with psychoactive substance-induced mood disorder; F25.0 Schizoaffective disorder, bipolar type; G47.00 Insomnia, unspecified; J44.9 Chronic obstructive pulmonary disease, unspecified; M19.90 Unspecified osteoarthritis, unspecified site; Z72.0 Tobacco use; M79.601 Pain in right arm; M79.602 Pain in left arm; M79.641 Pain in right hand; M79.642 Pain in left hand
CPT/HCPCS: 36415; 80053; 81003; 81015; 85027; 86593